=== PATIENT | male | born 1970 | race Caucasian/White ===

== ENCOUNTER 2021-12-20 01:26 | Inpatient (IN) | payer MEDICAID ==
[~2021-12-20] VITALS: Ht 175.3 cm; Wt 99.8 kg
[~2021-12-20 01:26] MED LIST: BENA10TA77 PO; ISOS30TA92 PO; METO50 PO; TRAZ-257 PO; WARF5TAB40 PO
[2021-12-20] MEDS ORDERED: ONDANSETRON HCL 4 MG/2 ML VIAL IVP ONE (01:30)
[2021-12-20] MEDS ORDERED: MAG HYDROX/AL HYDROX/SIMETH 30 ML SUSP UDCUP PO ONE (01:30)
[2021-12-20] MEDS ORDERED: FAMOTIDINE 10 MG/ML 2 ML VIAL IVP ONE (01:30)
[2021-12-20] MEDS ORDERED: MORPHINE SULFATE 2 MG/ML SYRINGE IVP ONE ×3 (01:30→08:15)
[2021-12-20 01:52] LABS: BASOPHILS % (AUTO) 0.9 % (0.0-2.0); EOSINOPHILS % (AUTO) 0.9 % (1.0-6.0); HEMATOCRIT 44.4 % (41-53); HEMOGLOBIN 14.9 g/dL (13.5-17.5); LYMPHOCYTES # (AUTO) 2.9 K/uL (1.0-4.8); LYMPHOCYTES % (AUTO) 32.6 % (22.0-44.0); MEAN CORPUSCULAR HGB CONC 33.4 G/dL (31.0-37.0); MEAN CORPUSCULAR VOLUME 75 fL (80-100); MONOCYTES # (AUTO) 0.7 K/uL (0.1-1.0); MONOCYTES % (AUTO) 8.3 % (2.0-9.0); NEUTROPHILS # (AUTO) 5.2 K/uL (1.8-7.7); NEUTROPHILS % (AUTO) 57.3 % (40.0-70.0); PLATELET COUNT (AUTO) 200 K/uL (150-450); RED BLOOD CELL COUNT(AUTO) 5.95 MIL/uL (4.50-5.90); RED CELL DISTRIBUTION WIDTH 15.4 % (11.5-14.5)
[2021-12-20 02:03] LABS: ANION GAP 14 mmol/L (8-16); CALCIUM, TOTAL 9.3 mg/dL (8.8-10.5); CARBON DIOXIDE 24 mmol/L (22-29); CHLORIDE 96 mmol/L (98-107); CREATININE 0.99 mg/dL (0.60-1.30); GLOMERULAR FILTR. RATE CALC > 60 mL/min (>60); GLUCOSE,RANDOM 395 mg/dL (70-110); POTASSIUM 3.9 mmol/L (3.5-5.1); SODIUM SERUM 134 mmol/L (136-145); UREA NITROGEN, BLOOD 13 mg/dL (7-18)
[2021-12-20 02:12] LABS: B-TYPE NATRIURETIC PEPTIDE 23 pg/mL (0-100)
[2021-12-20 02:28] LABS: ALANINE AMINOTRANSFERASE 47 U/L (12-78); ALBUMIN 3.8 g/dL (3.4-5.0); ALKALINE PHOSPHATASE 131 U/L (46-116); ASPARTATE AMINOTRANSFERASE 41 U/L (15-37); BILIRUBIN,TOTAL 0.3 mg/dL (0.1-1.0); CREATINE KINASE, TOTAL ONLY 239 U/L (39-308); LIPASE 256 U/L (73-393); TOTAL PROTEIN, SERUM 7.4 g/dL (6.4-8.2)
[2021-12-20] MEDS ORDERED: SODIUM CHLORIDE 0.9% 1,000 ML IV ONE (02:45)
[2021-12-20] MEDS ORDERED: ACETAMINOPHEN 500 MG TABLET PO ONE (03:00)
[2021-12-20] MEDS ORDERED: METOCLOPRAMIDE HCL 5 MG/ML 2 ML VIAL IVP ONE (03:15)
[2021-12-20] MEDS ORDERED: DiphenhydrAMINE HCL 50 MG/ML VIAL IVP ONE (03:15)
[2021-12-20] MEDS ORDERED: SODIUM CHLORIDE 0.9% 100 ML ONE (03:23)
[2021-12-20] MEDS ORDERED: IOHEXOL 300 MG/ML 100 ML VIAL ONE (03:24)
[2021-12-20 03:53] LABS: AMPHET/METH SCREEN,URINE NEGATIVE (NEGATIVE); BARBITURATE SCREEN, URINE NEGATIVE (NEGATIVE); BENZODIAZEPINES SCREEN,URINE NEGATIVE (NEGATIVE); CANNABINOID SCREEN,URINE NEGATIVE (NEGATIVE); COCAINE SCREEN,URINE NEGATIVE (NEGATIVE); METHADONE SCREEN, URINE NEGATIVE (NEGATIVE); OPIATE SCREEN,URINE NEGATIVE (NEGATIVE)
[2021-12-20 03:56] LABS: PHENCYCLIDINE SCREEN,URINE NEGATIVE (NEGATIVE)
[2021-12-20] MEDS ORDERED: HEPARIN SODIUM 25000 UNITS/D5W 250 ML IV PRN ×2 (04:45→17:30)
[2021-12-20 05:09] LABS: PROTHROMBIN TIME 10.3 SEC (9.4-11.6)
[2021-12-20] MEDS ORDERED: ONDANSETRON HCL 4 MG/2 ML VIAL IVP PRN ×2 (05:15→09:15)
[2021-12-20] MEDS ORDERED: ACETAMINOPHEN 325 MG TABLET PO PRN ×2 (05:15→09:15)
[2021-12-20] MEDS ORDERED: 0.9% SODIUM CHLORIDE 10 ML SYRINGE IVP PRN (05:15)
[2021-12-20 07:21] LABS: COVID AG,FIA SOURCE NASAL SWAB
[2021-12-20] MEDS ORDERED: ZOLPIDEM TARTRATE 5 MG TABLET PO PRN (09:15)
[2021-12-20] MEDS ORDERED: BISACODYL 10 MG RECTAL RECTAL SUPPOSITORY PR PRN (09:15)
[2021-12-20] MEDS ORDERED: MAGNESIUM HYDROXIDE SUSPENSION 30 ML UDCUP PO PRN (09:15)
[2021-12-20] MEDS: MORPHINE SULFATE 2 MG/ML SYRINGE IVP PRN ×3 (12:26→21:59)
[2021-12-20] MEDS ORDERED: HEPARIN SODIUM,PORCINE 5,000 UNITS/ML VIAL SQ SCH (16:00)
[2021-12-20] MEDS ORDERED: HEPARIN SODIUM,PORCINE 5,000 UNITS/ML VIAL IVP PRN (17:30)
[2021-12-20 17:55] LABS: BASOPHILS % (AUTO) 1.3 % (0.0-2.0); EOSINOPHILS % (AUTO) 2.2 % (1.0-6.0); HEMOGLOBIN 14.1 g/dL (13.5-17.5); LYMPHOCYTES # (AUTO) 2.3 K/uL (1.0-4.8); LYMPHOCYTES % (AUTO) 33.7 % (22.0-44.0); MEAN CORPUSCULAR HEMOGLOBIN 24.2 pg (26.0-34.0); MEAN CORPUSCULAR HGB CONC 32.7 G/dL (31.0-37.0); MEAN CORPUSCULAR VOLUME 74 fL (80-100); MONOCYTES # (AUTO) 0.6 K/uL (0.1-1.0); MONOCYTES % (AUTO) 9.1 % (2.0-9.0); NEUTROPHILS # (AUTO) 3.7 K/uL (1.8-7.7); NEUTROPHILS % (AUTO) 53.7 % (40.0-70.0); PLATELET COUNT (AUTO) 193 K/uL (150-450); RED BLOOD CELL COUNT(AUTO) 5.82 MIL/uL (4.50-5.90); RED CELL DISTRIBUTION WIDTH 15.5 % (11.5-14.5)
[2021-12-20 18:08] LABS: PROTHROMBIN TIME 10.9 SEC (9.4-11.6)
[2021-12-20] MEDS: HEPARIN SODIUM,PORCINE 5,000 UNITS/ML VIAL IVP PRN (19:35)
[2021-12-20 20:54] VITALS: BP 126/74
[2021-12-20] MEDS: DOCUSATE SODIUM 100 MG CAPSULE PO SCH (21:00)
[2021-12-20] MEDS ORDERED: DEXTROSE 50%-WATER 25 GM/50 ML SYRINGE IVP PRN (22:45)
[2021-12-21] VITALS (16 sets, daily range): BP systolic 108–152; BP diastolic 65–93
[2021-12-21] MEDS: MORPHINE SULFATE 2 MG/ML SYRINGE IVP PRN ×5 (02:52→23:37)
[2021-12-21] MEDS: INSULIN LISPRO 100 UNITS/ML SQ PRN ×3 (06:00→20:58)
[2021-12-21 07:00] LABS: BASOPHILS % (AUTO) 0.7 % (0.0-2.0); EOSINOPHILS % (AUTO) 2.7 % (1.0-6.0); HEMATOCRIT 42.4 % (41-53); LYMPHOCYTES # (AUTO) 2.3 K/uL (1.0-4.8); MEAN CORPUSCULAR HEMOGLOBIN 24.4 pg (26.0-34.0); MEAN CORPUSCULAR HGB CONC 33.1 G/dL (31.0-37.0); MEAN CORPUSCULAR VOLUME 74 fL (80-100); MONOCYTES # (AUTO) 0.6 K/uL (0.1-1.0); MONOCYTES % (AUTO) 8.5 % (2.0-9.0); NEUTROPHILS % (AUTO) 56.1 % (40.0-70.0); PLATELET COUNT (AUTO) 179 K/uL (150-450); RED BLOOD CELL COUNT(AUTO) 5.75 MIL/uL (4.50-5.90); RED CELL DISTRIBUTION WIDTH 15.6 % (11.5-14.5)
[2021-12-21 07:14] LABS: ALANINE AMINOTRANSFERASE 44 U/L (12-78); ALBUMIN 3.5 g/dL (3.4-5.0); ALKALINE PHOSPHATASE 78 U/L (46-116); ANION GAP 12 mmol/L (8-16); ASPARTATE AMINOTRANSFERASE 60 U/L (15-37); BILIRUBIN,TOTAL 0.6 mg/dL (0.1-1.0); CALCIUM, TOTAL 8.8 mg/dL (8.8-10.5); CARBON DIOXIDE 25 mmol/L (22-29); CHLORIDE 99 mmol/L (98-107); CHOL/HDL RATIO 3.2 (4.2-7.3); CHOLESTEROL 120 mg/dL (131-200); CREATININE 0.76 mg/dL (0.60-1.30); GLUCOSE,RANDOM 222 mg/dL (70-110); HDL CHOLESTEROL 38 mg/dL (40-60); LDL CHOL (CALC.) 14 mg/dL (0-130); SODIUM SERUM 136 mmol/L (136-145); TOTAL PROTEIN, SERUM 6.9 g/dL (6.4-8.2); TRIGLYCERIDES 342 mg/dL (15-150); UREA NITROGEN, BLOOD 8 mg/dL (7-18)
[2021-12-21 07:15] LABS: GLOMERULAR FILTR. RATE CALC > 60 mL/min (>60)
[2021-12-21] MEDS: HEPARIN SODIUM,PORCINE 5,000 UNITS/ML VIAL IVP PRN (08:19)
[2021-12-21] MEDS: PANTOPRAZOLE SODIUM 40 MG DR TABLET PO SCH (08:26)
[2021-12-21] MEDS: ASPIRIN 81 MG CHEWABLE TABLET PO SCH (08:26)
[2021-12-21] MEDS: ATORVASTATIN CALCIUM 40 MG TABLET PO SCH (08:26)
[2021-12-21] MEDS: DOCUSATE SODIUM 100 MG CAPSULE PO SCH ×2 (08:27→21:00)
[2021-12-21] MEDS: METOPROLOL SUCCINATE 25 MG ER TABLET PO SCH (08:27)
[2021-12-21] MEDS ORDERED: ASPIRIN 81 MG CHEWABLE TABLET PO SCH (09:00)
[2021-12-21 12:16] LABS: GLUCOMETER DEV NAME(LOC) 5N.3; GLUCOSE,POINT OF CARE 251 MG/DL (70-110)
[2021-12-21 12:16] LABS: GLUCOMETER DEV NAME(LOC) 5N.3; GLUCOSE,POINT OF CARE 247 MG/DL (70-110)
[2021-12-21] MEDS ORDERED: HEPARIN SODIUM 1000 UNITS/NS 1,000 ML ONE (13:27)
[2021-12-21] MEDS ORDERED: IOHEXOL 300 MG/ML 50 ML VIAL ONE (13:27)
[2021-12-21] MEDS ORDERED: SODIUM BICARBONATE 50 MEQ/50 ML VIAL ONE (13:27)
[2021-12-21] MEDS ORDERED: LIDOCAINE/PF 1% 30 ML VIAL ONE (13:27)
[2021-12-21] MEDS ORDERED: IOHEXOL 300 MG/ML 100 ML VIAL ONE (13:27)
[2021-12-21] MEDS ORDERED: IOHEXOL 300 MG/ML 150 ML VIAL ONE (13:27)
[2021-12-21] MEDS ORDERED: NITROGLYCERIN 50 MG/D5% WATER 250 ML ONE (13:45)
[2021-12-21] MEDS ORDERED: VERAPAMIL HCL 2.5 MG/ML 2 ML VIAL ONE (13:45)
[2021-12-21] MEDS ORDERED: FentaNYL CITRATE PF 100 MCG/2 ML VIAL ONE (13:49)
[2021-12-21] MEDS ORDERED: MIDAZOLAM HCL 2 MG/2 ML VIAL ONE (13:49)
[2021-12-21] MEDS ORDERED: VERAPAMIL HCL 2.5 MG/ML 2 ML VIAL IARTER ONE (14:00)
[2021-12-21] MEDS ORDERED: LIDOCAINE 1% 30 ML/SOD BICARB 8.4% 4 ML SQ ONE (14:00)
[2021-12-21] MEDS ORDERED: IOHEXOL 300 MG/ML 150 ML VIAL IARTER ONE (14:00)
[2021-12-21] MEDS ORDERED: SODIUM CHLORIDE 0.9% 500 ML IV ONE (14:00)
[2021-12-21] MEDS ORDERED: NITROGLYCERIN/D5W 50 MG/250 ML IV BOTTLE IARTER ONE (14:00)
[2021-12-21] MEDS ORDERED: HEPARIN SODIUM,PORCINE 1,000 UNITS/ML 10 ML VIAL IARTER ONE (14:00)
[2021-12-21] MEDS ORDERED: HEPARIN SODIUM 1000 UNITS/NS 1,000 ML IARTER ONE (14:00)
[2021-12-21] MEDS ORDERED: FentaNYL CITRATE PF 100 MCG/2 ML VIAL IVP ONE ×2 (14:30→14:45)
[2021-12-21] MEDS ORDERED: MIDAZOLAM HCL 2 MG/2 ML VIAL IVP ONE ×2 (14:30→14:45)
[2021-12-21] MEDS ORDERED: HEPARIN SODIUM,PORCINE 5,000 UNITS/ML VIAL IVP ONE ×2 (14:45→15:30)
[2021-12-21] MEDS ORDERED: NITROGLYCERIN/D5W 50 MG/250 ML IV BOTTLE ICOR ONE (15:00)
[2021-12-21] MEDS ORDERED: PRASUGREL HCL 10 MG TABLET PO ONE (15:00)
[2021-12-21] MEDS ORDERED: MORPHINE SULFATE 2 MG/ML SYRINGE IVP ONE (15:15)
[2021-12-21] MEDS ORDERED: NITROGLYCERIN 0.4 MG SUBLINGUAL TABLET #25 SL PRN (18:00)
[2021-12-21] MEDS: HYDROCODONE/ACETAMINOPHEN 5-325 MG TABLET PO PRN (20:58)
[2021-12-22 00:15] VITALS: BP 137/93
[2021-12-22 04:32] VITALS: BP 111/58
[2021-12-22 06:19] LABS: BASOPHILS % (AUTO) 0.6 % (0.0-2.0); EOSINOPHILS % (AUTO) 2.1 % (1.0-6.0); HEMATOCRIT 43.3 % (41-53); HEMOGLOBIN 14.2 g/dL (13.5-17.5); LYMPHOCYTES # (AUTO) 1.6 K/uL (1.0-4.8); LYMPHOCYTES % (AUTO) 25.8 % (22.0-44.0); MEAN CORPUSCULAR HEMOGLOBIN 24.1 pg (26.0-34.0); MEAN CORPUSCULAR HGB CONC 32.8 G/dL (31.0-37.0); MEAN CORPUSCULAR VOLUME 74 fL (80-100); MONOCYTES # (AUTO) 0.6 K/uL (0.1-1.0); MONOCYTES % (AUTO) 9.7 % (2.0-9.0); NEUTROPHILS # (AUTO) 3.9 K/uL (1.8-7.7); NEUTROPHILS % (AUTO) 61.8 % (40.0-70.0); PLATELET COUNT (AUTO) 183 K/uL (150-450); RED BLOOD CELL COUNT(AUTO) 5.88 MIL/uL (4.50-5.90); RED CELL DISTRIBUTION WIDTH 15.5 % (11.5-14.5)
[2021-12-22 06:37] LABS: ANION GAP 8 mmol/L (8-16); CARBON DIOXIDE 27 mmol/L (22-29); CHLORIDE 99 mmol/L (98-107); CREATININE 0.75 mg/dL (0.60-1.30); GLUCOSE,RANDOM 213 mg/dL (70-110); POTASSIUM 4.2 mmol/L (3.5-5.1); SODIUM SERUM 134 mmol/L (136-145); UREA NITROGEN, BLOOD 8 mg/dL (7-18)
[2021-12-22] MEDS: INSULIN LISPRO 100 UNITS/ML SQ PRN (06:40)
[2021-12-22 06:44] LABS: GLOMERULAR FILTR. RATE CALC > 60 mL/min (>60)
[2021-12-22 07:32] VITALS: BP 105/64
[2021-12-22] MEDS: ASPIRIN 81 MG CHEWABLE TABLET PO SCH (08:26)
[2021-12-22] MEDS: HYDROCODONE/ACETAMINOPHEN 5-325 MG TABLET PO PRN (08:26)
[2021-12-22] MEDS: ATORVASTATIN CALCIUM 40 MG TABLET PO SCH (08:26)
[2021-12-22] MEDS: PANTOPRAZOLE SODIUM 40 MG DR TABLET PO SCH (08:26)
[2021-12-22] MEDS: METOPROLOL SUCCINATE 25 MG ER TABLET PO SCH (08:26)
[2021-12-22] MEDS: DOCUSATE SODIUM 100 MG CAPSULE PO SCH (08:27)
[2021-12-22] MEDS ORDERED: PRASUGREL HCL 10 MG TABLET PO SCH (09:00)
[2021-12-22] MEDS ORDERED: ASPI81 PO (10:45)
[2021-12-22] MEDS ORDERED: PRAS10TA20 PO (10:45)
[2021-12-22] MEDS ORDERED: METO25XL PO (10:45)
[2021-12-22] MEDS ORDERED: ATOR40TA71 PO (10:45)
[2021-12-22 11:12] VITALS: BP 135/62
[2021-12-22 12:06] LABS: GLUCOMETER DEV NAME(LOC) 5S.1B; GLUCOSE,POINT OF CARE 222 MG/DL (70-110)
[2021-12-22 12:06] LABS: GLUCOMETER DEV NAME(LOC) 5S.1B; GLUCOSE,POINT OF CARE 180 MG/DL (70-110)
[2021-12-22 12:47] LABS: GLUCOMETER DEV NAME(LOC) 5N.3; GLUCOSE,POINT OF CARE 279 MG/DL (70-110)
== END 2021-12-22 12:10 | disposition home or self-care (01) | DRG 174 ==
LOC: EMS 01:29 → 5S 09:15
PROVIDERS: ADMIT Internal Medicine; ATTEND Internal Medicine
PROC: 027034Z Dilation of Coronary Artery, One Artery with Drug-eluting Intraluminal Device, Percutaneous Approach (ICD-10-PCS; principal; 2021-12-21)
PROC: 4A023N7 Measurement of Cardiac Sampling and Pressure, Left Heart, Percutaneous Approach (ICD-10-PCS; 2021-12-21)
PROC: B2111ZZ Fluoroscopy of Multiple Coronary Arteries using Low Osmolar Contrast (ICD-10-PCS; 2021-12-21)
DX: I21.4 Non-ST elevation (NSTEMI) myocardial infarction (principal); I49.5 Sick sinus syndrome; K57.92 Diverticulitis of intestine, part unspecified, without perforation or abscess without bleeding; E11.65 Type 2 diabetes mellitus with hyperglycemia; I25.10 Atherosclerotic heart disease of native coronary artery without angina pectoris; E78.5 Hyperlipidemia, unspecified; Z20.822 Contact with and (suspected) exposure to COVID-19; I10 Essential (primary) hypertension; Z95.0 Presence of cardiac pacemaker; Z86.718 Personal history of other venous thrombosis and embolism; Z79.82 Long term (current) use of aspirin; Z79.02 Long term (current) use of antithrombotics/antiplatelets; Z90.49 Acquired absence of other specified parts of digestive tract; Z88.8 Allergy status to other drugs, medicaments and biological substances
CPT/HCPCS: 71045; 74177; 80048; 80053; 80061; 82550; 82962; 83690; 83880; 84484; 85025; 85379; 85610; 85730; 87081; 92920; 92928; 93005; 93306; 99291; G0480; J1200; J1644; J2250; J2270; J2405; J2765; J3010; J3490; J7050; Q9967; 36415-L1; 36415-TC; Z7610

== ENCOUNTER 2022-05-03 17:21 | Emergency (ER) | payer MEDICAID ==
[~2022-05-03] VITALS: Ht 175.3 cm; Wt 104.5 kg
[~2022-05-03 17:21] MED LIST changes: +ASPI81 PO; +ATOR40TA71 PO; -BENA10TA77 PO; +METO25XL PO; -METO50 PO; +PRAS10TA6 PO; -WARF5TAB40 PO
[2022-05-03 20:29] VITALS: BP 145/96
== END 2022-05-03 20:36 | disposition left against medical advice (07) ==
LOC: EMS 17:21
DX: M79.602 Pain in left arm (principal); E11.9 Type 2 diabetes mellitus without complications; I10 Essential (primary) hypertension; Z95.1 Presence of aortocoronary bypass graft; Z95.0 Presence of cardiac pacemaker; Z88.6 Allergy status to analgesic agent
CPT/HCPCS: 82962; 99281